=== PATIENT | male | born 1965 | race Two or more races ===

== ENCOUNTER 2021-04-07 16:38 | Emergency (ER) | payer MEDICARE ==
[~2021-04-07] VITALS: Ht 167.6 cm; Wt 79.4 kg
[2021-04-07 19:55] VITALS: BP 154/87
== END 2021-04-07 19:45 | disposition home or self-care (01) ==
LOC: ER 16:38
DX: S50.861A Insect bite (nonvenomous) of right forearm, initial encounter (principal); L29.9 Pruritus, unspecified; W57.XXXA Bitten or stung by nonvenomous insect and other nonvenomous arthropods, initial encounter; Y93.89 Activity, other specified; Y92.89 Other specified places as the place of occurrence of the external cause; Y99.8 Other external cause status